=== PATIENT | male | born 1980 | race African-American/Black ===

== ENCOUNTER 2017-02-02 02:41 | Emergency (ER) | payer OTHER ==
[~2017-02-02] VITALS: Ht 180.3 cm; Wt 130.0 kg
[~2017-02-02 02:41] MED LIST: PROMSYP PO; Z.0.NO CURRENT MEDS
[2017-02-02 02:46] VITALS: BP 171/99; PULSE 93; RESP 24; TEMP 98.8; O2SAT 97
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
[2017-02-02 03:15] VITALS: BP 175/63
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
[2017-02-02 03:22] LABS: AUTOMATED NEUTROPHIL # 4.9 TH/MM3 (1.8-7.7); BASOPHIL % 0.1 % (0.0-2.0); EOSINOPHIL # 0.1 TH/MM3 (0-0.4); HEMATOCRIT 43.7 % (39.0-51.0); LYMPHOCYTE # 3.1 TH/MM3 (1.0-4.8); MEAN CELL VOLUME 86.7 FL (80.0-100.0); MEAN CORPUSCULAR HEMOGLOBIN 31.2 PG (27.0-34.0); MONO % 8.7 % (0.0-8.0); NEUT % 55.2 % (16.0-70.0); PLATELET COUNT 189 TH/MM3 (150-450); RED BLOOD COUNT 5.04 MIL/MM3 (4.50-5.90); RED CELL DISTRIBUTION WIDTH 13.5 % (11.6-17.2); WHITE BLOOD COUNT 8.9 TH/MM3 (4.0-11.0)
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
[2017-02-02 03:23] LABS: HEMO FLAGS AUTO DIFF
[2017-02-02] MEDS ORDERED: ONDANSETRON HCL 4 MG/2 ML VIAL IV PUSH ONE (03:30)
[2017-02-02] MEDS ORDERED: DIPHTH/TETANUS/ACEL PERTUSSIS (BOOSTER) 0.5 ML VIAL/PFS IM ONE (03:30)
[2017-02-02] MEDS ORDERED: MORPHINE SULFATE 4 MG/ML INJ IV PUSH ONE (03:30)
[2017-02-02] MEDS ORDERED: ceFAZolin 2 GM PREMIX 50 ML IV ONE (03:30)
[2017-02-02] MEDS ORDERED: SODIUM CHLOR 0.9% 1000 ML INJ 1,000 ML IV ONE (03:30)
[2017-02-02 03:33] LABS: APTT (PATIENT) 25.5 SEC (24.3-30.1); PROTHROMBIN TIME - PATIENT 10.8 SEC (9.8-11.6)
[2017-02-02 03:47] VITALS: BP 157/66; PULSE 91; RESP 20; O2SAT 97
[2017-02-02 03:59] LABS: ALKALINE PHOSPHATASE 74 U/L (45-117); ALT (GPT) 30 U/L (12-78); ANION GAP 10 MEQ/L (5-15); AST (GOT) 35 U/L (15-37); BICARBONATE 25.6 MEQ/L (21.0-32.0); BLOOD UREA NITROGEN 12 MG/DL (7-18); CHLORIDE 104 MEQ/L (98-107); CREATINE KINASE 361 U/L (39-308); GLOMERULAR FILTRATION RATE 72 ML/MIN (>89); MAGNESIUM 1.7 MG/DL (1.5-2.5); POTASSIUM 3.5 MEQ/L (3.5-5.1); SODIUM (NA) 140 MEQ/L (136-145); TOTAL BILIRUBIN ADULT 0.8 MG/DL (0.2-1.0)
[2017-02-02 04:05] LABS: PLATELET ESTIMATE SMEAR NORMAL (NORMAL); PLATELET MORPHOLOGY NORMAL (NORMAL); SCAN/DIFF FINAL DIFF MANUAL
[2017-02-02 04:12] LABS: CKMB 1.5 NG/ML (0.5-3.6)
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
[2017-02-02] MEDS ORDERED: IOHEXOL 350 MG/ML 10 ML VIAL (for RAD DIAG) IV ONE (05:03)
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
[2017-02-02] MEDS ORDERED: HYDR-3533 PO ×2 (05:38→07:23)
[2017-02-02] MEDS ORDERED: CYCL5TAB PO ×2 (05:38→07:23)
[2017-02-02] MEDS ORDERED: oxyCODONE/ACETAMINOPHEN 7.5 MG/325 MG TAB PO ONE (06:15)
--- NOTE | 2017-02-02 16:25 | EKG ---
Date Performed: 02/02/2017 Time Performed: 02:50:21 PTAGE: 36 years EKG: Sinus rhythm NONSPECIFIC T-WAVE ABNORMALITY BORDERLINE ECG NO PREVIOUS TRACING DOCTOR: Mina Dunlap Interpretating Date/Time 02/02/2017 16:23:56
== END 2017-02-02 07:50 | disposition home or self-care (01) ==
LOC: NEPE 02:41
DX: S22.42XA Multiple fractures of ribs, left side, initial encounter for closed fracture (principal); R94.31 Abnormal electrocardiogram [ECG] [EKG]; Z23 Encounter for immunization; Z72.0 Tobacco use; V89.2XXA Person injured in unspecified motor-vehicle accident, traffic, initial encounter
CPT/HCPCS: 70450; 71010; 71260; 72125; 72170; 74177; 80053; 82550; 82552; 83690; 83735; 84484; 85007; 85027; 85610; 85730; 90471; 90715; 93005; 94150; 96365; 96375; 99285; J0690; J2270; J2405; J7030; Q9967

== ENCOUNTER 2017-02-04 18:48 | Emergency (ER) | payer OTHER ==
[~2017-02-04] VITALS: Ht 182.9 cm; Wt 134.0 kg
[~2017-02-04 18:48] MED LIST changes: +CYCL5TAB PO; +HYDR-3533 PO; -PROMSYP PO; -Z.0.NO CURRENT MEDS
[2017-02-04 18:50] VITALS: BP 134/80; PULSE 80; RESP 20; TEMP 98.7; O2SAT 97
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
[2017-02-04] MEDS ORDERED: KETOROLAC TROMETHAMINE 60 MG/2 ML (IM) VIAL IM ONE (19:45)
[2017-02-04] MEDS ORDERED: ACETAMINOPHEN/HYDROcodone 325 MG/5 MG TAB PO ONE (19:45)
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
[2017-02-04] MEDS ORDERED: IBUP800T23 PO (20:09)
[2017-02-04] MEDS ORDERED: HYDR-3533 PO (20:09)
[2017-02-04] MEDS ORDERED: CYCL5TAB PO ×2 (20:09→20:14)
== END 2017-02-04 20:36 | disposition home or self-care (01) ==
LOC: NEPK 18:48
DX: S22.42XD Multiple fractures of ribs, left side, subsequent encounter for fracture with routine healing (principal); V89.2XXD Person injured in unspecified motor-vehicle accident, traffic, subsequent encounter
CPT/HCPCS: 71101; 96372; 99284; J1885

== ENCOUNTER 2017-02-25 12:23 | Emergency (ER) | payer SELFPAY ==
[~2017-02-25 12:23] MED LIST changes: +IBUP800T23 PO
[2017-02-25] MEDS ORDERED: SODIUM CHLORID 0.9% 500 ML INJ 500 ML IV ONE (12:45)
[2017-02-25] MEDS ORDERED: SODIUM CHLORIDE 0.9% FLUSH 10 ML FLUSH IVF PRN (12:45)
[2017-02-25] MEDS ORDERED: ONDANSETRON HCL 4 MG/2 ML VIAL IV PUSH ONE (12:45)
[2017-02-25] MEDS ORDERED: MORPHINE SULFATE 4 MG/ML INJ IV PUSH ONE (12:45)
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
[2017-02-25 13:00] VITALS: BP 146/76; PULSE 99; RESP 28; TEMP 99.7; O2SAT 98
[2017-02-25 13:16] LABS: AUTOMATED NEUTROPHIL # 8.7 TH/MM3 (1.8-7.7); BASOPHIL % 0.3 % (0.0-2.0); EOSINOPHIL # 0.1 TH/MM3 (0-0.4); HEMATOCRIT 42.5 % (39.0-51.0); HEMO FLAGS DIFF FINAL; LYMPH % 12.8 % (9.0-44.0); LYMPHOCYTE # 1.4 TH/MM3 (1.0-4.8); MEAN CELL VOLUME 87.7 FL (80.0-100.0); MEAN CORPUSCULAR HEMOGLOBIN 29.9 PG (27.0-34.0); MEAN CORPUSCULAR HGB CONC 34.1 % (32.0-36.0); MONO % 8.8 % (0.0-8.0); NEUT % 77.1 % (16.0-70.0); PLATELET COUNT 264 TH/MM3 (150-450); RED BLOOD COUNT 4.85 MIL/MM3 (4.50-5.90); RED CELL DISTRIBUTION WIDTH 13.6 % (11.6-17.2); WHITE BLOOD COUNT 11.3 TH/MM3 (4.0-11.0)
[2017-02-25 13:34] LABS: APTT (PATIENT) 28.2 SEC (24.3-30.1); INTERNATIONAL NORMALIZED RATIO 0.9 RATIO; PROTHROMBIN TIME - PATIENT 10.2 SEC (9.8-11.6)
[2017-02-25 13:41] LABS: ALKALINE PHOSPHATASE 106 U/L (45-117); ALT (GPT) 28 U/L (12-78); CREATINE KINASE 153 U/L (39-308); TOTAL BILIRUBIN ADULT 0.4 MG/DL (0.2-1.0)
[2017-02-25 13:54] LABS: CKMB 0.5 NG/ML (0.5-3.6)
[2017-02-25 14:00] LABS: ANION GAP 7 MEQ/L (5-15); AST (GOT) 17 U/L (15-37); BICARBONATE 25.8 MEQ/L (21.0-32.0); BLOOD UREA NITROGEN 13 MG/DL (7-18); CHLORIDE 106 MEQ/L (98-107); GLOMERULAR FILTRATION RATE 112 ML/MIN (>89); MAGNESIUM 2.2 MG/DL (1.5-2.5); SODIUM (NA) 139 MEQ/L (136-145)
[2017-02-25 14:08] LABS: ACETAMINOPHEN LESS THAN 2.0 MCG/ML (10.0-30.0)
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
[2017-02-25] MEDS ORDERED: BACT800T5 PO (15:01)
[2017-02-25] MEDS ORDERED: HYDR-3366 PO (15:01)
[2017-02-25] MEDS ORDERED: IBUP-232 PO (15:01)
[2017-02-25 15:49] VITALS: BP 133/66; TEMP 99.4
--- NOTE | 2017-02-26 12:56 | EKG ---
Date Performed: 02/25/2017 Time Performed: 14:18:37 PTAGE: 36 years EKG: Sinus rhythm NORMAL ECG PREVIOUS TRACING : 02/02/2017 02.50 DOCTOR: Tucker Velasquez Interpretating Date/Time 02/26/2017 12:49:59
== END 2017-02-25 16:10 | disposition home or self-care (01) ==
LOC: NEPD 12:23
DX: S22.42XA Multiple fractures of ribs, left side, initial encounter for closed fracture (principal); V49.9XXA Car occupant (driver) (passenger) injured in unspecified traffic accident, initial encounter; Y92.414 Local residential or business street as the place of occurrence of the external cause; L02.411 Cutaneous abscess of right axilla
CPT/HCPCS: 71010; 71250; 80053; 80307; 82550; 82552; 83690; 83735; 84484; 85025; 85610; 85730; 93005; 96374; 96375; 99285; J2270; J2405; J7040